=== PATIENT | male | born 1955 | race Two or more races ===

== ENCOUNTER 2023-06-05 07:59 | Day surgery (SDC) | payer OTHER ==
[2023-05-30 11:43] LABS: HEMATOCRIT 44.6 % (39.0-48.0); HEMOGLOBIN 15.6 g/dL (13-16.00); MEAN CELL VOLUME 96.7 fL (80.0-100.00); MEAN CORPUSCULAR HEMOGLOBIN 33.8 pg (27.00-32.0); MEAN CORPUSCULAR HGB CONC 34.9 g/dl (32.0-36.0); PLATELET COUNT 180 K/uL (150-450); RED BLOOD COUNT 4.62 M/uL (4.00-6.00); RED CELL DISTRIBUTION WIDTH 13.9 % (11.5-14.5)
[2023-05-30 11:49] LABS: URINE APPEARANCE Clear; URINE BILIRRUBIN Negative (NEGATIVE); URINE BLOOD Negative; URINE COLOR Yellow; URINE GLUCOSE Negative (NEGATIVE); URINE LEUKOCYTE Negative; URINE NITRATE Negative; URINE PROTEIN Negative (NEGATIVE); URINE UROBILINOGEN 0.2 E.U./dl
[2023-05-30 11:50] LABS: URINE RBC 4.1 uL (0.0-20.8)
[2023-05-30 12:06] LABS: URINE BACTERIA 2.5 uL (0.0-1933); URINE EPITHELIAL CELLS 0.6 uL (0.0-38.8); URINE WBC 1.2 uL (0.0-23.2)
[2023-05-30 12:11] LABS: CALCIUM 9.3 mg/dL (8.5-10.1); CREATININE SERUM 0.88 mg/dL (0.70-1.30); GFR 86.64; POTASSIUM 4.19 mEq/L (3.5-5.1)
[2023-05-30 12:15] LABS: PARTIAL THROMBOPLASTIN TIME 26.5 SECONDS (22.0-34.0); PROTHROMBIN TIME 10.5 SECONDS (9.0-11.5)
[~2023-06-05] VITALS: Ht 170.2 cm; Wt 77.1 kg
[~2023-06-05 07:59] MED LIST: AVAPRO150 MG PO
[2023-06-05] MEDS ORDERED: PERCOCET 5-3251 EACH PO (17:31)
== END 2023-06-05 20:00 | disposition home or self-care (01) ==
LOC: CIR.AMB 07:59
PROVIDERS: ATTEND Surgery
DX: N52.01 Erectile dysfunction due to arterial insufficiency (principal); Z20.822 Contact with and (suspected) exposure to COVID-19; Z88.0 Allergy status to penicillin
CPT/HCPCS: 54405; C1813

== ENCOUNTER 2023-06-05 20:52 | Inpatient (IN) | payer OTHER ==
[~2023-06-05] VITALS: Ht 177.8 cm; Wt 77.6 kg
[~2023-06-05 20:52] MED LIST changes: +PERCOCET 5-3251 EACH PO
[2023-06-05 21:51] LABS: HEMATOCRIT 43.5 % (39.0-48.0); HEMOGLOBIN 15.4 g/dL (13-16.00); MEAN CELL VOLUME 94.6 fL (80.0-100.00); MEAN CORPUSCULAR HEMOGLOBIN 33.4 pg (27.00-32.0); MEAN CORPUSCULAR HGB CONC 35.3 g/dl (32.0-36.0); PLATELET COUNT 185 K/uL (150-450); RED CELL DISTRIBUTION WIDTH 13.1 % (11.5-14.5)
[2023-06-05 22:07] LABS: CREATININE SERUM 0.9 mg/dL (0.70-1.30); GFR 84.43; POTASSIUM 4.11 mEq/L (3.5-5.1)
[2023-06-06 10:21] LABS: HEMATOCRIT 38.7 % (39.0-48.0); HEMOGLOBIN 13.3 g/dL (13-16.00); MEAN CELL VOLUME 96.6 fL (80.0-100.00); MEAN CORPUSCULAR HEMOGLOBIN 33.3 pg (27.00-32.0); MEAN CORPUSCULAR HGB CONC 34.5 g/dl (32.0-36.0); PLATELET COUNT 173 K/uL (150-450); RED CELL DISTRIBUTION WIDTH 13.2 % (11.5-14.5)
[2023-06-06 10:54] LABS: CALCIUM 8.4 mg/dL (8.5-10.1); CREATININE SERUM 1.11 mg/dL (0.70-1.30); GFR 66.28; POTASSIUM 3.98 mEq/L (3.5-5.1)
[2023-06-07 13:50] LABS: HEMATOCRIT 41.9 % (39.0-48.0); HEMOGLOBIN 14.3 g/dL (13-16.00); MEAN CELL VOLUME 96.9 fL (80.0-100.00); MEAN CORPUSCULAR HEMOGLOBIN 33.1 pg (27.00-32.0); MEAN CORPUSCULAR HGB CONC 34.1 g/dl (32.0-36.0); PLATELET COUNT 175 K/uL (150-450); RED BLOOD COUNT 4.32 M/uL (4.00-6.00); RED CELL DISTRIBUTION WIDTH 13.4 % (11.5-14.5)
== END 2023-06-08 21:54 | disposition home or self-care (01) | DRG 700 ==
LOC: ER 20:52 → SURG 22:46
PROVIDERS: Emergency Medicine; Internal Medicine; ADMIT Surgery; ATTEND Surgery
PROC: 0T9B70Z Drainage of Bladder with Drainage Device, Via Natural or Artificial Opening (ICD-10-PCS; 2023-06-05)
PROC: BW21ZZZ Computerized Tomography (CT Scan) of Abdomen and Pelvis (ICD-10-PCS; principal; 2023-06-07)
DX: T83.89XA Other specified complication of genitourinary prosthetic devices, implants and grafts, initial encounter (principal); R31.0 Gross hematuria; R33.8 Other retention of urine; N52.8 Other male erectile dysfunction; I10 Essential (primary) hypertension; Y83.8 Other surgical procedures as the cause of abnormal reaction of the patient, or of later complication, without mention of misadventure at the time of the procedure; Y73.1 Therapeutic (nonsurgical) and rehabilitative gastroenterology and urology devices associated with adverse incidents